=== PATIENT | female | born 1990 | race African-American/Black ===

== ENCOUNTER 2025-03-05 16:19 | Emergency (ER) | payer OTHER ==
[~2025-03-05 16:19] MED LIST: Iopamidol 370 76% 100 ML VIAL ONE
[2025-03-05] MEDS ORDERED: Prochlorperazine 10 MG/2 ML VIAL ONE (17:32)
[2025-03-05] MEDS ORDERED: diphenhydrAMINE 50 MG/ML VIAL ONE (17:32)
[2025-03-05 18:19] LABS: Hematocrit 39.2 % (36.0-47.0); Hemoglobin 12.1 g/dL (12.0-16.0); MDiff Complete? YES; Mean Corpuscular Hemoglobin 25.7 pg (27.0-31.0); Mean Corpuscular Volume 83.1 fl (78.0-98.0); Platelet Count 396 10x3/uL (130-400); Red Blood Cell (RBC) Count 4.72 mill/uL (4.20-5.40); White Blood Cell (WBC) Count 5.7 10x3/uL (4.8-10.8)
[2025-03-05 18:26] LABS: ALT (SGPT) Less than 7 U/L (Less than 34); AST (SGOT) 12 U/L (11-34); Albumin 3.7 g/dL (3.1-4.5); Alkaline Phosphatase 68 U/L (40-110); Anion Gap 15 mmol/L (10-20); BUN (Urea Nitrogen) 9 mg/dL (7.0-18.7); Bilirubin, Total 0.2 mg/dL (0.3-1.2); Calc. Creatinine Clearance 0 mL/min (70-130); Calcium 9.3 mg/dL (7.8-10.44); Carbon Dioxide 22 mmol/L (22-29); Chloride 104 mmol/L (98-107); Globulin 3.5 g/dL (2.4-3.5); Glucose 97 mg/dL (70-105); Potassium 4.2 mmol/L (3.5-5.1); Sodium 137 mmol/L (136-145)
[2025-03-05] MEDS ORDERED: Ketorolac Tromethamine 30 MG (1 mL) VIAL ONE (18:50)
== END 2025-03-05 20:24 | disposition home or self-care (01) ==
LOC: MADERS 16:19
DX: U07.1 COVID-19 (principal); G43.909 Migraine, unspecified, not intractable, without status migrainosus
CPT/HCPCS: 70450; 70496; 70498; 80053; 85025; 87426; 96374; 96375; J0780; J1200; J1885; J7030; Q9967

== ENCOUNTER 2025-04-14 10:17 | Outpatient (CLI) | payer OTHER | END 2025-04-14 10:18 | disposition home or self-care (01) | LOC: MADRAD 10:17 | PROVIDERS: ATTEND Family Medicine | DX: M79.671 Pain in right foot (principal) ==

== ENCOUNTER 2025-06-04 22:04 | Emergency (ER) | payer OTHER ==
[2025-06-04 22:59] LABS: Anisocytosis SLIGHT = 6-15 cells (100X) (0-5/hpf); Hematocrit 33.7 % (36.0-47.0); Hemoglobin 10.3 g/dL (12.0-16.0); MDiff Complete? YES; Mean Corpuscular Hemoglobin 24.6 pg (27.0-31.0); Mean Corpuscular Volume 81.1 fl (78.0-98.0); Platelet Count 351 10x3/uL (130-400); Poikilocytosis SLIGHT = 6-15 cells (100X) (0-5/hpf); Red Blood Cell (RBC) Count 4.16 mill/uL (4.20-5.40); White Blood Cell (WBC) Count 8.1 10x3/uL (4.8-10.8)
[2025-06-04 23:09] LABS: ALT (SGPT) 9 U/L (Less than 34); AST (SGOT) 17 U/L (11-34); Albumin 3.7 g/dL (3.1-4.5); Alkaline Phosphatase 90 U/L (40-110); Anion Gap 16 mmol/L (10-20); BUN (Urea Nitrogen) 11 mg/dL (7.0-18.7); Bilirubin, Total 0.2 mg/dL (0.3-1.2); CK (CPK) 118 U/L (29-168); Calc. Creatinine Clearance 0 mL/min (70-130); Calcium 9.1 mg/dL (7.8-10.44); Carbon Dioxide 22 mmol/L (22-29); Chloride 105 mmol/L (98-107); Globulin 3.2 g/dL (2.4-3.5); Glucose 105 mg/dL (70-105); Magnesium 2.0 mg/dL (1.6-2.6); Potassium 3.7 mmol/L (3.5-5.1); Sodium 139 mmol/L (136-145); Troponin I Less than 0.010 ng/mL (< 0.028)
[2025-06-04] MEDS ORDERED: Nitroglycerin 0.4 MG TAB 1 EACH ONE (23:35)
[2025-06-04] MEDS ORDERED: Aspirin Chewable 81 MG TAB ONE (23:35)
[2025-06-05 00:13] LABS: Pregnancy Test - Urine (BHCG) Negative (Negative); Pregu Control Background? CLEAR/WHITE (CLR/WHITE); Pregu Control Bar Appear? YES (CONTROL BAR)
[2025-06-05 02:00] LABS: Troponin I Less than 0.010 ng/mL (< 0.028)
[2025-06-05] MEDS ORDERED: Orphenadrine Citrate 60 MG/2 ML VIAL ONE (02:46)
== END 2025-06-05 03:27 | disposition home or self-care (01) ==
LOC: MADERS 22:04
DX: R07.89 Other chest pain (principal); F43.0 Acute stress reaction
CPT/HCPCS: 36415; 71045; 71275; 80053; 81025; 82550; 83735; 83880; 84484; 85025; 85379; 93005; J2360; Q9967